=== PATIENT | male | born 1960 | race Caucasian/White ===

== ENCOUNTER 2021-01-29 05:57 | Day surgery (SDC) | payer BC ==
[~2021-01-29 05:57] MED LIST: Midazolam 1 MG/ML 2 ML SDV ONE; fentaNYL 100 MCG/2 ML SDV ONE
[2021-01-29] MEDS ORDERED: fentaNYL 100 MCG/2 ML SDV IV ONE ×7 (05:58→07:57)
[2021-01-29] MEDS ORDERED: Midazolam 1 MG/ML 2 ML SDV IV ONE ×7 (05:58→07:50)
[2021-01-29] MEDS ORDERED: Dextrose 5%-0.45% NaCl 1,000 ML IV SCH (07:00)
--- NOTE | 2021-01-29 10:35 | OR ---
DATE: 01/29/2021 PROCEDURES: Total colonoscopy, ileoscopy, and multiple pinch biopsies. INSTRUMENT USED: PCF-H190DL Olympus video colonoscope. PREMEDICATIONS: Fentanyl 200 mcg intravenous, Versed 4 mg intravenous. Nasal O2 cannula. The procedure was done under pulse oximetry, BP recording, and quality assurance monitor body. INDICATIONS: The patient with previous right hemicolectomy for cancer with persistent diarrhea unexplained and not responsive to medical measures. Colonoscopic examination is done for detection of any polypoid lesions and removal, biopsies to be obtained for microscopic colitis, and endoscopic hemostasis therapy if needed. DESCRIPTION OF PROCEDURE: Initial rectal exam was unremarkable. Rigid anoscopy was normal. The colonoscope was passed with ease up to the surgical anastomotic site, photographs were taken of the area. No bleeding was noted from any of the visualized areas at the commencement of the examination. The bowel preparation was found to be adequate; Marquette scale 2 in right and transverse colon and 3 in left colon, total score 7. No stricture, no vascular ectasia. No large isolated ulcerations seen. No evidence of diffuse inflammatory bowel disease in the form of friability, contact bleeding, or ulcerations. No polyp or tumor mass identified. Multiple pinch biopsies were taken from the normal-appearing terminal ileum, transverse colon, descending colon, and rectosigmoid and sent for any microscopic evidence of colitis. No bleeding was noted from any of the visualized areas at the completion of examination. IMPRESSION: Status post right hemicolectomy. The patient tolerated the procedure well. [facility] /[id number]
== END 2021-01-29 10:14 | disposition home or self-care (01) ==
LOC: DL.ENDO 05:57
PROVIDERS: ATTEND Internal Medicine Gastroenterology
DX: R19.7 Diarrhea, unspecified (principal); E78.5 Hyperlipidemia, unspecified; Z98.890 Other specified postprocedural states; Z90.49 Acquired absence of other specified parts of digestive tract; Z01.812 Encounter for preprocedural laboratory examination; Z20.822 Contact with and (suspected) exposure to COVID-19
CPT/HCPCS: 45380; 87635; J2250; J3010; J7042; U0002

== ENCOUNTER 2023-01-11 21:10 | Emergency (ER) | payer BC, OTHER ==
[2023-01-11] MEDS ORDERED: Sodium Chloride 0.9% 10 ML Syringe FLUSH PRN (22:38)
[2023-01-11 23:02] LABS: BASOPHILS PERCENT AUTO 0.1 % (0.0-1.0); EOSINOPHILS PERCENT AUTO 0.3 % (1.0-3.0); HEMATOCRIT 44.4 % (40.0-54.0); HEMOGLOBIN 16.2 g/dL (14.0-18.0); LYMPHOCYTES PERCENT AUTO 5.3 % (20.5-50.1); MEAN CORPUSCULAR HEMOGLOBIN 31.9 pg (27.0-34.0); MEAN CORPUSCULAR HGB CONC 36.5 g/dL (33.0-35.0); MEAN CORPUSCULAR VOLUME 87.4 fL (80-100); MONOCYTES PERCENT AUTO 11.5 % (2-8); NEUTROPHILS PERCENT AUTO 82.8 % (42.2-75.2); PLATELET COUNT,PLT 228 10^3/uL (150-450); RED BLOOD CELL COUNT 5.08 10^6/uL (4.6-6.2); WHITE BLOOD CELL COUNT,WBC 12.6 10^3/uL (5.0-10.0)
[2023-01-11] MEDS ORDERED: Sodium Chloride 0.9% 1,000 ML IV ONE (23:18)
[2023-01-11 23:20] LABS: A/G RATIO 1.2; ALANINE AMINOTRANSFERASE,ALT 36 U/L (16-63); ALBUMIN 4.2 g/dL (3.4-5.0); ALKALINE PHOSPHATASE 59 U/L (46-116); ANION GAP 21.1 mEq/L (7-13); ASPARTATE AMNIOTRANSFERASE,AST 44 U/L (15-37); BILIRUBIN TOTAL 4.6 mg/dL (0.2-1.0); BLOOD UREA NITROGEN,BUN 14 mg/dL (7-18); BUN/CREATININE RATIO 18.9 (No establ ref range); CALCIUM 8.8 mg/dL (8.5-10.1); CARBON DIOXIDE,CO2 19 mmol/L (21-32); CHLORIDE,CL 101 mmol/L (98-107); CREATININE 0.74 mg/dL (0.70-1.30); ESTIMATED GFR 103 mL/min (>=60); GLUCOSE RANDOM 141 mg/dL (70-99); POTASSIUM,K 4.1 mmol/L (3.5-5.1); PROTEIN TOTAL,TP 7.7 g/dL (6.4-8.2); SODIUM,NA 137 mmol/L (136-145)
[2023-01-11] MEDS ORDERED: Iopamidol 612 MG/ML 100 ML Bottle IVPUSH ONE (23:41)
== END 2023-01-12 02:52 | disposition home or self-care (01) ==
LOC: DL.ED 21:10
DX: K80.20 Calculus of gallbladder without cholecystitis without obstruction (principal); K52.9 Noninfective gastroenteritis and colitis, unspecified; K76.89 Other specified diseases of liver; E80.6 Other disorders of bilirubin metabolism; Z90.49 Acquired absence of other specified parts of digestive tract; Z88.8 Allergy status to other drugs, medicaments and biological substances
CPT/HCPCS: 36415; 74019; 74177; 80053; 85025; 96360; 99284; 99284-25; J3490; J7030; Q9967

== ENCOUNTER 2024-06-06 17:31 | Emergency (ER) | payer BC, OTHER ==
[2024-06-06 19:12] LABS: BASOPHILS PERCENT AUTO 0.2 % (0.0-1.0); EOSINOPHILS PERCENT AUTO 0.4 % (1.0-3.0); HEMATOCRIT 45.3 % (40.0-54.0); HEMOGLOBIN 15.8 g/dL (14.0-18.0); LYMPHOCYTES PERCENT AUTO 13.1 % (20.5-50.1); MEAN CORPUSCULAR HEMOGLOBIN 31.1 pg (27.0-34.0); MEAN CORPUSCULAR HGB CONC 34.9 g/dL (33.0-35.0); MEAN CORPUSCULAR VOLUME 89.2 fL (80-100); MONOCYTES PERCENT AUTO 17.2 % (2-8); NEUTROPHILS PERCENT AUTO 69.1 % (42.2-75.2); PLATELET COUNT,PLT 179 10^3/uL (150-450); RED BLOOD CELL COUNT 5.08 10^6/uL (4.6-6.2); WHITE BLOOD CELL COUNT,WBC 5.5 10^3/uL (5.0-10.0)
[2024-06-06] MEDS: Lactated Ringers 1,000 ML IV ONE (19:22)
[2024-06-06 19:31] LABS: A/G RATIO 1.1; ALBUMIN 4.1 g/dL (3.4-5.0); ANION GAP 14.3 mEq/L (7-13); BUN/CREATININE RATIO 15.4 (No establ ref range); CALCIUM 9.1 mg/dL (8.5-10.1); CREATININE 0.91 mg/dL (0.70-1.30); EST CRCL DRUG DOSING (CG) 83.09 mL/min; POTASSIUM,K 3.3 mmol/L (3.5-5.1); PROTEIN TOTAL,TP 7.7 g/dL (6.4-8.2)
[2024-06-06] MEDS: Iopamidol 612 MG/ML 100 ML Bottle IVPUSH ONE (20:20)
[2024-06-06] MEDS: Ondansetron 8 MG in Sodium Chloride 0.9% 50 ML IV ONE (21:00)
== END 2024-06-06 21:26 | disposition home or self-care (01) ==
LOC: DL.ED 17:31
DX: K52.9 Noninfective gastroenteritis and colitis, unspecified (principal); E78.00 Pure hypercholesterolemia, unspecified; Z88.8 Allergy status to other drugs, medicaments and biological substances; Z79.899 Other long term (current) drug therapy
CPT/HCPCS: 36415; 74177; 80053; 83690; 85025; 96360; 99284; J7120; Q9967